=== PATIENT | female | born 1980 | race African-American/Black ===

== ENCOUNTER 2022-11-21 15:06 | Emergency (ER) | payer OTHER ==
[~2022-11-21] VITALS: Ht 170.2 cm; Wt 100.0 kg
[~2022-11-21 15:06] MED LIST: ACET-3161
[2022-11-21] MEDS ORDERED: NAPR-681 MT (17:01)
[2022-11-21 17:17] VITALS: BP 190/106
[2022-11-21] MEDS ORDERED: ACET-2708 MT (18:48)
== END 2022-11-21 17:29 | disposition home or self-care (01) ==
LOC: ER 15:06
DX: S93.401A Sprain of unspecified ligament of right ankle, initial encounter (principal); I10 Essential (primary) hypertension; Z98.890 Other specified postprocedural states; X58.XXXA Exposure to other specified factors, initial encounter; Y93.9 Activity, unspecified; Y92.89 Other specified places as the place of occurrence of the external cause; Y99.8 Other external cause status
CPT/HCPCS: 73610; 99283

== ENCOUNTER 2024-12-15 23:57 | Emergency (ER) | payer OTHER ==
[~2024-12-15] VITALS: Ht 170.2 cm; Wt 101.9 kg
[~2024-12-15 23:57] MED LIST changes: +ACET-2708 MT; +NAPR-681 MT
[2024-12-16 00:11] VITALS: O2SAT 100
[2024-12-16 00:53] LABS: BASOPHILS % 0.7 % (0.0-2.0); EOSINOPHILS % 4.2 % (0.0-5.0); HEMATOCRIT. 29.1 % (36.0-48.0); HEMOGLOBIN. 9.1 g/dL (12.0-16.0); LYMPHOCYTES % 29.1 % (20.0-50.0); MEAN PLATELET VOLUME 8.0 fl (7.4-10.4); MONOCYTES % 7.9 % (2.0-8.0); NEUTROPHILS % 58.1 % (40.0-76.0); PLATELET 302 x1000/uL (130-400); RED BLOOD CELL COUNT 3.83 mill/uL (4.2-5.4); RED CELL DISTRIBUTION WIDTH 17.1 % (11.6-14.6)
[2024-12-16] MEDS: KETOROLAC 30MG/ML VIAL IV ONE (00:59)
[2024-12-16] MEDS: LABETALOL 5MG/ML 4ML INJ IV ONE (01:00)
[2024-12-16] MEDS: METOCLOPRAMIDE HCL 10MG TABLET PO ONE (01:02)
[2024-12-16] MEDS: DIPHENHYDRAMINE 25MG CAPSULE PO ONE (01:02)
[2024-12-16 01:07] LABS: HCG SCREEN NEGATIVE
[2024-12-16 01:09] LABS: CREATININE 1.0 mg/dL (0.6-1.0); UREA NITROGEN BLOOD 15 mg/dL (9-23)
[2024-12-16 01:11] LABS: ASPARTATE AMINOTRANSFERASE 19 IU/L (<34); BILIRUBIN DIRECT < 0.1 mg/dL (<=3.0); BILIRUBIN TOTAL 0.3 mg/dL (0.1-1.0); PROTEIN TOTAL 7.5 g/dL (6.0-8.3)
[2024-12-16] MEDS ORDERED: LOSA50TA41 MT (01:52)
[2024-12-16] MEDS ORDERED: ESCI10TA MT (01:52)
[2024-12-16] MEDS: CLONIDINE 0.1MG TABLET PO ONE ×3 (01:58→02:10)
[2024-12-16] MEDS: HYDRALAZINE 20MG/ML VIAL IV ONE ×3 (01:58→02:10)
[2024-12-16] MEDS: LOSARTAN 50 MG TABLET PO ONE ×2 (02:00→02:10)
[2024-12-16 02:10] VITALS: BP 168/97; PULSE 72; RESP 16; TEMP 36.8; O2SAT 100
== END 2024-12-16 02:21 | disposition home or self-care (01) ==
LOC: ER 23:57
DX: G43.909 Migraine, unspecified, not intractable, without status migrainosus (principal); I10 Essential (primary) hypertension; Z76.0 Encounter for issue of repeat prescription; Z79.1 Long term (current) use of non-steroidal anti-inflammatories (NSAID); Z98.890 Other specified postprocedural states; Z79.899 Other long term (current) drug therapy
CPT/HCPCS: 81025; 99285; 80076; 80048; 84703; 85025; 36415; 70450; 96374; 96375; Q0163; J8597; J0360; J1885; J3490; Z7610 ×2; A4606